=== PATIENT | male | born 1955 | race Caucasian/White ===

== ENCOUNTER 2024-12-29 14:04 | Outpatient (CLI) | payer MEDICARE, BC, SELFPAY ==
--- NOTE | 2024-12-29 14:30 | CRLHL7_ITS ---
For Patients: As a result of the Century Cures Act, medical imaging exams and procedure reports are released immediately into your electronic medical record. You may view this report before your referring provider. If you have questions, please contact your health care provider. INDICATION: LEFT EAR TINNITUS TECHNIQUE: Non-contrast sagittal T1, axial FLAIR, FSE T2, DWI, posterior fossa CISS images provided. Supplemental post contrast T1 weighted axial and coronal high resolution images through the posterior fossa with fat saturation and post contrast whole head axial T1 weighted images submitted. Contrast: 20 ml Dotarem IV contrast. COMPARISON: No comparisons. 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 Mild crowding of structures at the foramen magnum. The ventricles, sulci and gyri are of normal size, shape and contour for age. Midline structures are centrally located. No convincing evidence of suspicious intra- or extra-axial fluid collections. No regions of restricted diffusion. Expected flow-voids within the cavernous carotids and basilar artery. No suspicious masses within the internal auditory canals. No suspicious regions of abnormal parenchymal enhancement. Mild mucosal thickening in the right maxillary sinus. Leftward deviation of the nasal septum. IMPRESSION: 1. No radiographic evidence of acute intracranial abnormalities. 2. Chiari 1 malformation. 3. Multiple scattered foci of T2 prolongation in the supratentorial white matter are most compatible with chronic small vessel disease. 4. Normal cerebellopontine angles, internal auditory canals, cranial nerve cisternal segments and otic capsule structures. 5. No pathologic enhancement. Dictated by Rishi Walter MD @ 12/30/2024 1:50:49 PM (Electronically Signed)
== END 2024-12-29 14:05 | disposition home or self-care (01) ==
LOC: MRI 14:06
PROVIDERS: Visit Provider Otolaryngology
DX: H93.12 Tinnitus, left ear (principal); G93.5 Compression of brain
CPT/HCPCS: 70553; A9575